=== PATIENT | male | born 1940 | race Caucasian/White ===

== ENCOUNTER 2018-08-09 09:00 | Inpatient (IN) | payer OTHER ==
[~2018-08-09] VITALS: Ht 180.3 cm; Wt 95.3 kg
[2018-08-09] MEDS ORDERED: TRESIBA FL100 UNIT/1 (12:30)
[2018-08-09] MEDS ORDERED: JANU (12:31)
[2018-08-09] MEDS ORDERED: GLIMEPIRIDE4 MG PO (12:32)
[2018-08-09] MEDS ORDERED: [UNRECOGNIZED DRUG - OTHER] PO (12:32)
[2018-08-09] MEDS ORDERED: METOPOROL PO (12:33)
[2018-08-09] MEDS ORDERED: CRESTOR10 MG PO (12:33)
== END 2018-08-18 17:23 | disposition home or self-care (01) | DRG 331 ==
LOC: SURH 08-15 09:00 → SURG 08-15 10:40 → O/R 08-15 10:40 → SURH 08-15 20:41 → SURG 08-15 21:36 → SURH 08-15 22:30 → SURG 08-18 17:23
PROVIDERS: Colon & Rectal Surgery
PROC: 07TC4ZZ Resection of Pelvis Lymphatic, Percutaneous Endoscopic Approach (ICD-10-PCS; 2018-08-15)
PROC: 0DBU4ZZ Excision of Omentum, Percutaneous Endoscopic Approach (ICD-10-PCS; 2018-08-15)
PROC: 0DJD8ZZ Inspection of Lower Intestinal Tract, Via Natural or Artificial Opening Endoscopic (ICD-10-PCS; 2018-08-15)
PROC: 0DTE4ZZ Resection of Large Intestine, Percutaneous Endoscopic Approach (ICD-10-PCS; principal; 2018-08-15 22:30)
DX: D12.3 Benign neoplasm of transverse colon (principal); E11.9 Type 2 diabetes mellitus without complications; I10 Essential (primary) hypertension; E78.00 Pure hypercholesterolemia, unspecified